=== PATIENT | female | born 1950 | race American Indian/Alaskan Native ===

== ENCOUNTER 2021-04-27 07:55 | Emergency (ER) | payer MEDICARE, OTHER ==
[~2021-04-27] VITALS: Ht 162.6 cm; Wt 81.7 kg
[2021-04-27] MEDS ORDERED: FLONASE ALLERG9.9 ML NAS (08:32)
== END 2021-04-27 08:45 | disposition home or self-care (01) ==
LOC: ED 07:55
DX: J30.9 Allergic rhinitis, unspecified (principal); H61.22 Impacted cerumen, left ear; Z87.891 Personal history of nicotine dependence; Z88.2 Allergy status to sulfonamides; Z88.1 Allergy status to other antibiotic agents
CPT/HCPCS: 99283

== ENCOUNTER 2023-10-26 08:59 | Emergency (ER) | payer MEDICARE, OTHER ==
[~2023-10-26] VITALS: Ht 162.6 cm; Wt 89.9 kg
[~2023-10-26 08:59] MED LIST: FLONASE ALLERG9.9 ML NAS
[2023-10-26 09:22] VITALS: BP 156/96
== END 2023-10-26 09:23 | disposition home or self-care (01) ==
LOC: ED 08:59
DX: H10.9 Unspecified conjunctivitis (principal); Z87.891 Personal history of nicotine dependence; Z88.8 Allergy status to other drugs, medicaments and biological substances
CPT/HCPCS: 99283